=== PATIENT | female | born 1955 | race African-American/Black ===

== ENCOUNTER 2016-07-25 08:55 | Day surgery (SDC) | payer OTHER ==
[2016-07-25] MEDS ORDERED: DIPHENHYDRAMINE HCL 50 MG/ML VIAL ONE (09:31)
[2016-07-25] MEDS ORDERED: ONDANSETRON HCL INJ/PF 4 MG/2 ML SDV ONE (09:31)
[2016-07-25] MEDS ORDERED: NALOXONE HCL INJ/PF 0.4 MG/1 ML SDV ONE (09:32)
[2016-07-25] MEDS ORDERED: MIDAZOLAM 2 MG/2 ML INJ ONE ×2 (09:32)
[2016-07-25] MEDS ORDERED: FLUMAZENIL INJ 0.5 MG/5 ML VIAL IV ONE (09:32)
[2016-07-25] MEDS ORDERED: GLUCAGON,HUMAN RECOMB 1 MG INJ ONE (09:33)
[2016-07-25] MEDS ORDERED: EPINEPHRINE INJ 1 MG/10 ML DISP.SYRIN ONE (09:33)
[2016-07-25] MEDS: FENTANYL CITRATE INJ/PF 100 MCG/2 ML AMPUL ONE ×2 (09:50→09:54)
--- NOTE | 2016-07-25 10:03 | Operative Report ---
Operative Report DATE OF SURGERY: 07/25/16 Operative Report: The risks, benefits and alternatives of the procedure including risks of bleeding, perforation requiring surgery are explained to the patient in detail and informed consent is obtained. Patient is taken to the endoscopy suite and placed in a left, lateral decubital position. Timeout is called. Conscious sedation medications are provided. An Olympus videoscope was inserted into the patient's rectum. The scope was then gradually advanced all the way to the cecum. The cecum was identified by the usual anatomical landmarks of the ileocecal valve as well as the appendiceal office. Photodocumentation is obtained. Prep is good. Scope was then sequentially pulled back creative rest segments of the colon including the ascending colon, hepatic flexure, transverse colon, splenic flexure, descending colon and finally into the rectosigmoid portions of the colon. Retroflexion maneuvers performed. PREOPERATIVE DIAGNOSIS: Colorectal cancer screening. POSTOPERATIVE DIAGNOSIS: Diverticulosis. Internal hemorrhoids OPERATION: Diagnostic colonoscopy SURGEON: PAULA HARDY ANESTHESIA: Moderate Sedation - 3 mg of Versed, 75 g of fentanyl. Conscious sedation monitoring time 30 minutes. TISSUE REMOVED OR ALTERED: None. COMPLICATIONS: None. ESTIMATED BLOOD LOSS: none. PROCEDURE: Patient tolerated the procedure well. No immediate postprocedure complications are noted. Patient discharged in good condition. Discharge date 07/25/2016. Discharge diet: Regular. Discharge activity: Regular. 2-3 week follow-up to discuss findings. 10 year surveillance should be adequate. Patient is instructed to call the office or proceed to the emergency room should there be any further questions.
[2016-07-25 11:12] VITALS: BP 115/77
== END 2016-07-25 11:20 | disposition home or self-care (01) ==
LOC: END 08:55
PROVIDERS: ATTEND Internal Medicine Gastroenterology
PROC: 0DJD8ZZ Inspection of Lower Intestinal Tract, Via Natural or Artificial Opening Endoscopic (ICD-10-PCS; principal; 2016-07-25 09:30)
DX: Z12.11 Encounter for screening for malignant neoplasm of colon (principal); K57.30 Diverticulosis of large intestine without perforation or abscess without bleeding; K64.8 Other hemorrhoids; I10 Essential (primary) hypertension; F17.210 Nicotine dependence, cigarettes, uncomplicated; M10.9 Gout, unspecified; Z79.899 Other long term (current) drug therapy; Z88.2 Allergy status to sulfonamides
CPT/HCPCS: 45378; J2250; J3010; J0171; J1200; J1610; J2310; J2405; J3490

== ENCOUNTER 2017-05-08 12:23 | Emergency (ER) | payer BC, OTHER ==
[2017-05-08 12:29] VITALS: BP 130/86
[2017-05-08] MEDS ORDERED: RIVAROXABAN 15 MG TABLET PO ONE (13:19)
--- NOTE | 2017-05-08 13:37 | ER Document Report ---
ED Medical Screen (RME) - General Chief Complaint: Leg Pain Stated Complaint: POSSIBLE BLOOD CLOT Time Seen by Provider: 05/08/17 12:52 Mode of Arrival: Ambulatory Information source: Patient Notes: This is a 61-year-old female with a history of hypertension that was referred to the emergency room after lower extremity Doppler showed a left calf DVT. The patient denies any chest pain or shortness of breath. She states she started having lower leg pain approximately 5 days ago. She denies any recent illnesses. She denies any fever or chills per TRAVEL OUTSIDE OF THE [place] IN LAST 30 DAYS: No - HPI Onset: Last week Onset/Duration: Gradual Quality of pain: Dull Severity: Mild Pain Level: 1 Associated Symptoms: denies: Chest pain, Shortness of breath Exacerbated by: Denies Relieved by: Denies Similar symptoms previously: Yes Recently seen / treated by doctor: Yes - Related Data Smoking: Non-smoker Frequency of alcohol use: None Drug Abuse: None Allergies/Adverse Reactions: Sulfa (Sulfonamide Antibiotics) Allergy (Mild, Verified 05/08/17 12:24) RASH Past Medical History - General Information source: Patient - Social History Cigarette use (# per day): No Chew tobacco use (# tins/day): No Frequency of alcohol use: None Drug Abuse: None Lives with: Family Family history: None - Past Medical History Cardiac Medical History: Reports: Hx Hypertension Denies: Hx Coronary Artery Disease, Hx Heart Attack Pulmonary Medical History: Denies: Hx Asthma, Hx Bronchitis, Hx COPD, Hx Pneumonia Neurological Medical History: Denies: Hx Cerebrovascular Accident, Hx Seizures Renal/ Medical History: Denies: Hx Peritoneal Dialysis GI Medical History: Reports: Hx Gastroesophageal Reflux Disease Musculoskeltal Medical History: Denies Hx Arthritis Past Surgical History: Reports: Other - Orthopedic. Denies: Hx Hysterectomy - Immunizations Hx Diphtheria, Pertussis, Tetanus Vaccination: Yes Review of Systems - Review of Systems Notes: Review of systems: Constitutional: Denies fever, chills. EENT: Denies ear pain, sinus tenderness, throat pain, throat swelling. Cardiovascular: Denies chest pain, palpitations, dyspnea or edema. Respiratory: Denies wheezing, cough, hemoptysis. Abdomen: Denies abdominal pain, nausea, vomiting, diarrhea. Denies BRBPR or melena. Genitourinary: Denies dysuria, pyuria, hematuria, flank pain. Musculoskeletal: See H&P Neurologic: Denies headache, photophobia, neck stiffness, weakness. Denies loss of bowel or bladder function. Denies saddle anesthesia. Skin: Denies rash, lesions. Physical Exam - Vital signs Vitals: Temp Pulse Resp BP Pulse Ox 97.9 F 91 20 130/86 H 97 05/08/17 12:27 05/08/17 12:27 05/08/17 12:27 05/08/17 12:27 05/08/17 12:27 Notes: Physical exam: GENERAL: 61-year-old female, alert and oriented 3, no acute distress HEAD: Atraumatic, normocephalic. EYES: Pupils equal round and reactive to light, extraocular movements intact, sclera anicteric, conjunctiva are normal. ENT: TMs normal, nares patent, oropharynx clear without exudates. Moist mucous membranes. NECK: Normal range of motion, supple without obvious mass or JVD. LUNGS: Breath sounds clear to auscultation bilaterally and equal. No wheezes rales or rhonchi. HEART: Regular rate and rhythm without murmurs, rubs or gallops. ABDOMEN: Soft, normoactive bowel sounds. No tenderness to palpation. No guarding, no rebound. No masses appreciated. EXTREMITIES: Normal range of motion, no pitting or edema. No clubbing or cyanosis. NEUROLOGICAL: Cranial nerves II through XII grossly intact. Normal speech, moving all extremities. PSYCH: Normal mood, normal affect. SKIN: Warm, Dry, normal turgor, no rashes or lesions noted. Course - Re-evaluation Re-evalutation: 05/08/17 13:20 I was unable to open the disc that the patient brought in from the diagnostic imaging center (they are not in our computer system). I did call Penny bernstein's office and spoke to her nurse and she confirmed that the patient had a lower extremity DVT. They did fax to me official copy of the report which reads that there is an occlusive noncompressible thought thrombus identified in the left superficial femoral, popliteal and posterior tibial veins. Normal flow and compressibility shown in the left external iliac, common femoral, profunda femoral, and anterior tibial veins. Occlusive thrombus is also identified in the left greater saphenous vein. I did discuss the case with Dr. Wilcox ( Hematology) who is willing to evaluate the patient in his office next week. He agreed with this. The patient was given her first dose in the ER. I have also discussed the treatment plan of Xarelto with Penny bernstein's office. 05/08/17 13:41 The patient is given a copy of the official ultrasound report to bring to the clerk checker office. - Vital Signs Vital signs: Temp Pulse Resp BP Pulse Ox 97.9 F 91 20 130/86 H 97 05/08/17 12:27 05/08/17 12:27 05/08/17 12:27 05/08/17 12:27 05/08/17 12:27 Doctor's Discharge - Discharge Clinical Impression: DVT Condition: Stable Disposition: HOME, SELF-CARE Instructions: DVT Outpatient Treatment ([facility]) Additional Instructions: As discussed, I would like you to follow-up with Dr. Wilcox: He has a clerk checker that specializes in blood clots and I have already discussed with him about your ultrasound report. I left his number on the chart, call on Thursday. Start taking the Xarelto 15 mg twice daily. He was given a first dose in the ER today. Take a second dose before bedtime. Follow-up with Penny bernstein as planned Return to the emergency room for any chest pain, shortness of breath or any concerns or getting worse. When you see Dr. Wilcox, bring a copy of the official ultrasound report with you. Prescriptions: Rivaroxaban [Xarelto 15 mg Tablet] 15 mg PO BID #42 tablet Referrals: WILBER WILCOX MD [ACTIVE STAFF] - 05/11/17 (This is the blood clot specialist. Call Dr. Wilcox office on Thursday for the next available appointment. Tell them that the ER doctor had spoken to Dr. Posadas )
== END 2017-05-08 13:48 | disposition home or self-care (01) ==
LOC: ER 12:23
DX: I82.812 Embolism and thrombosis of superficial veins of left lower extremity (principal); I82.412 Acute embolism and thrombosis of left femoral vein; I82.432 Acute embolism and thrombosis of left popliteal vein; I82.442 Acute embolism and thrombosis of left tibial vein; M79.605 Pain in left leg; I10 Essential (primary) hypertension
CPT/HCPCS: 99283